=== PATIENT | female | born 1970 | race Caucasian/White ===

== ENCOUNTER → 2016-06-18 | Outpatient (CLI) | payer BC ==
[~2016-06-18] MED LIST: BIOT1TAB2 PO; CETI10TA57 PO; EFFEXOR 225 MG PO; LOSA1TAB15 PO; MINO100C6 PO; MULT-963 PO; NITR100C3 PO; PHEN200T27 PO; SEASONALE PO
--- NOTE | 2016-06-18 18:50 | Diagnostic Imaging Report ---
Exam: Ultrasound thyroid. Date: June 18, 2016. Comparison: None. Indication: 45-year-old female, thyromegaly. Findings: Two-dimensional grayscale and color Doppler images were obtained of the thyroid. Right lobe of the thyroid: There is a hypoechoic nodule in the right lobe of the thyroid with low level internal echogenicity which measures 8 x 8 x 5 mm in size without internal blood flow. The right lobe of the thyroid measures 4.0 x 1.7 x 1.6 cm. Left lobe of the thyroid: There is a tiny anechoic lesion in the left thyroid measuring 2 x 2 x 2 mm in size likely relating to a very small colloid cyst. The left lobe of the thyroid measures 4.7 x 1.5 x 1.6 cm. Isthmus: The thyroid isthmus is unremarkable. There is normal thyroid vascularity. Impression: 1. 8mm predominantly cystic nodule in the right lobe of the thyroid with low-level internal echogenicity. This is not a particularly suspicious appearing thyroid nodule. 2. Tiny 2 mm probable colloid cyst in the left lobe of the thyroid. 3. Normal thyroid vascularity. Dictated by: Dictated on workstation # [id number]
== END ==
LOC: RAD 17:53
PROVIDERS: ATTEND Nurse Practitioner Family
DX: E01.0 Iodine-deficiency related diffuse (endemic) goiter (principal)
CPT/HCPCS: 76536

== ENCOUNTER → 2016-06-27 | Outpatient (CLI) | payer BC ==
[~2016-06-27] VITALS: Ht 165.1 cm; Wt 82.6 kg
[~2016-06-27] MED LIST changes: +LIDOCAINE 1% INJ 20 ML (XYLOCAINE) VIAL INJ ONE
[2016-06-27 14:32] VITALS: BP 120/64
--- NOTE | 2016-06-27 15:21 | Diagnostic Imaging Report ---
EXAMINATION: US-guided fine needle biopsy-thyroid. INDICATION: Right thyroid nodule. Family history of thyroid cancer. CONSENT: Informed consent was obtained from the patient. The risks, benefits, potential complications and alternatives were reviewed and all questions answered to the patient's satisfaction. FINDINGS: 8mm indeterminate right thyroid nodule. PROCEDURE: After sterile preparation and draping, 1% lidocaine was utilized for local anesthesia. A 25-gauge hypodermic needle is introduced into the right thyroid nodule under live ultrasound guidance. After confirming adequate positioning with saved ultrasound images, multiple passes of fine needle aspiration is performed and repeated 4 times. The patient tolerated the procedure well with no immediate complications. IMPRESSION: Successful US-guided fine needle aspiration biopsy of right thyroid nodule. Dictated by: Dictated on workstation # [id number]
== END ==
LOC: RAD 13:51
PROVIDERS: ATTEND Surgery
DX: E04.1 Nontoxic single thyroid nodule (principal)
CPT/HCPCS: 76942; 88305

== ENCOUNTER → 2016-09-12 | Outpatient (CLI) | payer BC ==
[~2016-09-12] MED LIST changes: -LIDOCAINE 1% INJ 20 ML (XYLOCAINE) VIAL INJ ONE
--- NOTE | 2016-09-14 12:56 | Diagnostic Imaging Report ---
Bilateral screening mammogram 2D views with tomosynthesis The current study was also evaluated with a Computer Aided Detection (CAD) system. INDICATION: Screening. No current complaints stated on the questionnaire. COMPARISON: 08/18/15 FINDINGS: The breasts are composed of scattered fibroglandular densities. There are occasional benign-appearing calcifications. Allowing for technique and positional differences, no suspicious change is seen. IMPRESSION: No significant change. ACR BI-RADS Category 2: Benign findings. Result letter will be mailed to the patient. Note: At least 10% of breast cancer is not imaged by mammography. Dictated on workstation # [id number]
== END ==
LOC: RAD 11:55
PROVIDERS: ATTEND Obstetrics & Gynecology
DX: Z12.31 Encounter for screening mammogram for malignant neoplasm of breast (principal)
CPT/HCPCS: 77067

== ENCOUNTER → 2017-04-15 | Outpatient (CLI) | payer BC ==
--- NOTE | 2017-04-15 11:09 | Diagnostic Imaging Report ---
PROCEDURE: US Gallbladder. TECHNIQUE: Multiple real-time grayscale images were obtained over the right upper quadrant in various projections. INDICATION: Abdominal pain and dyspepsia. FINDINGS: The liver is enlarged at 19.4 cm. There is increased echogenicity throughout the liver consistent with hepatic steatosis. No discrete liver mass is identified. The gallbladder is without evidence of stones or sludge. No wall thickening is seen. No pericholecystic fluid is identified. There is no biliary ductal dilatation. Partially visualized pancreas is unremarkable. Right kidney is unremarkable. There is no ascites ascites. IMPRESSION: 1. Hepatomegaly and hepatic steatosis. 2. No evidence of cholelithiasis or acute cholecystitis. Dictated by: Dictated on workstation # [id number]
== END ==
LOC: RAD 08:08
PROVIDERS: ATTEND Nurse Practitioner Family
DX: K76.0 Fatty (change of) liver, not elsewhere classified (principal)
CPT/HCPCS: 76705

== ENCOUNTER → 2017-04-22 | Outpatient (CLI) | payer BC ==
[~2017-04-22] MED LIST changes: +CATHETER FLUSH 10 ML SYR IV PRN
--- NOTE | 2017-04-22 13:16 | Diagnostic Imaging Report ---
INDICATION: Right upper quadrant pain. COMPARISON: Gallbladder ultrasound from 04/15/2017. TECHNIQUE: Anterior scintigraphic imaging of the abdomen was performed after the intravenous administration of 5.49 mCi Tc-99m Choletec. FINDINGS: The upper abdomen was imaged for 60 minutes with the gamma camera. There is prompt homogeneous uptake of radiopharmaceutical by the liver. There is activity in the common duct and gallbladder by 20 minutes. Small bowel activity is seen by 20 minutes. After 60 minutes, the patient received 8 ounces of Ensure by mouth. After 60 minutes, the gallbladder ejection fraction was calculated to be 90% which is normal. IMPRESSION: 1. No evidence of acute or chronic cholecystitis. 2. No gallbladder dysfunction as there is a gallbladder ejection fraction of 90%. Dictated by: Dictated on workstation # [id number]
== END ==
LOC: CARD 09:42
PROVIDERS: ATTEND Nurse Practitioner Family
DX: R10.11 Right upper quadrant pain (principal)
CPT/HCPCS: 78227

== ENCOUNTER → 2017-08-06 | Outpatient (CLI) | payer BC ==
[~2017-08-06] MED LIST changes: -CATHETER FLUSH 10 ML SYR IV PRN
== END ==
LOC: PREOP 05:36
PROVIDERS: ATTEND Surgery
DX: Z01.818 Encounter for other preprocedural examination (principal); R10.11 Right upper quadrant pain; R19.7 Diarrhea, unspecified

== ENCOUNTER → 2017-08-06 | Outpatient (CLI) | payer BC | LOC: CARD 13:40 | PROVIDERS: ATTEND Physician Assistant | DX: E11.9 Type 2 diabetes mellitus without complications (principal); I10 Essential (primary) hypertension; R00.2 Palpitations; R00.0 Tachycardia, unspecified | CPT/HCPCS: 93306 ==

== ENCOUNTER → 2017-09-24 | Outpatient (CLI) | payer BC ==
--- NOTE | 2017-09-24 12:10 | Diagnostic Imaging Report ---
INDICATION: Routine screening. Comparison is made prior study 09/12/2016 and 08/18/2015. 2-D and 3-D bilateral screening mammography was performed with Computer Aided Detection (CAD) system. FINDINGS: Scattered fibroglandular densities are identified bilaterally. There is a focal density in the superior left breast best seen on MLO at mid depth. No corresponding density on the CC view is seen. This most likely represents summation but additional views are recommended. Right breast is unremarkable. No malignant appearing microcalcifications are seen. The axillae are unremarkable. IMPRESSION: Left breast density. Additional views including spot compression and ML views are recommended for further evaluation. ACR BI-RADS Category 0: Incomplete. (Needs additional imaging evaluation). Result letter will be mailed to the patient. Note: At least 10% of breast cancer is not imaged by mammography. Dictated by: Dictated on workstation # [id number]
== END ==
LOC: RAD 09:17
PROVIDERS: ATTEND Obstetrics & Gynecology
DX: Z12.31 Encounter for screening mammogram for malignant neoplasm of breast (principal)
CPT/HCPCS: 77067

== ENCOUNTER → 2017-10-02 | Outpatient (CLI) | payer BC ==
--- NOTE | 2017-10-02 08:31 | Diagnostic Imaging Report ---
Indication: Left breast density. Patient presents for additional views. Correlation is made with screening study from 09/24/2017. 2-D and 3-D unilateral left diagnostic mammography was performed including conventional and mediolateral view and spot compression mediolateral views. Area of density noted in the superior left breast appears resolved with additional views and most likely represented superimposed fibroglandular tissue. No underlying mass or suspicious calcifications are seen. Impression: BI-RADS category 1 Additional views failed to demonstrate a discrete mass. Patient may return to routine annual screening mammography. ACR BI-RADS Category 1: Negative. Result letter will be mailed to the patient. Note: At least 10% of breast cancer is not imaged by mammography. Dictated by: Dictated on workstation # [id number]
== END ==
LOC: RAD 08:05
PROVIDERS: ATTEND Obstetrics & Gynecology
DX: R92.2 Inconclusive mammogram (principal)

== ENCOUNTER 2017-10-25 05:30 | Outpatient (CLI) | payer BC ==
[~2017-10-25] VITALS: Ht 165.1 cm; Wt 77.1 kg
[2017-10-25] MEDS ORDERED: METO-387 PO (14:10)
[2017-10-25] MEDS ORDERED: CHOL500049 PO (14:10)
[2017-10-25] MEDS ORDERED: THYR48.7 PO (14:10)
[2017-10-25] MEDS ORDERED: LOSA1TAB23 PO (14:10)
[2017-10-25] MEDS ORDERED: METF-397 PO (14:10)
[2017-10-25] MEDS ORDERED: CETI10TA17 PO (14:10)
[2017-10-25] MEDS ORDERED: MULT1CAP27 PO (14:10)
[2017-10-25] MEDS ORDERED: MINO100C2 PO (14:10)
[2017-10-25] MEDS ORDERED: VENL150T PO (14:10)
[2017-10-25] MEDS ORDERED: L-NO1TBD PO (14:10)
[2017-10-25] MEDS ORDERED: ZOLP5TAB PO (14:10)
[2017-10-31] MEDS ORDERED: DOCU-143 PO (09:32)
[2017-10-31] MEDS ORDERED: ACHD5005 PO (09:32)
== END 2017-10-25 14:14 | disposition home or self-care (01) ==
LOC: PREOP 05:30
PROVIDERS: ATTEND Surgery
DX: Z01.818 Encounter for other preprocedural examination (principal)

== ENCOUNTER 2017-10-31 06:17 | Day surgery (SDC) | payer BC ==
[~2017-10-31] VITALS: Ht 165.1 cm; Wt 77.1 kg
[~2017-10-31 06:17] MED LIST changes: +CETI10TA17 PO; +CHOL500049 PO; +L-NO1TBD PO; +LOSA1TAB23 PO; +METF-397 PO; +METO-387 PO; +MINO100C2 PO; +MULT1CAP27 PO; +THYR48.7 PO; +VENL150T PO; +ZOLP5TAB PO
[2017-10-31] MEDS ORDERED: ceFAZolin 1,000 MG/10 ML (ANCEF) VIAL ONE (06:54)
[2017-10-31] MEDS ORDERED: NS (IVPB) 50 ML ONE (06:54)
[2017-10-31 07:00] VITALS: BP 135/82
[2017-10-31] MEDS ORDERED: SCOPOLAMINE 1.5 MG (TRANSDERM-SCOP) PATCH ONE (07:00)
[2017-10-31] MEDS ORDERED: FAMOTIDINE 20MG/2ML IV (PEPCID) ONE (07:00)
[2017-10-31] MEDS ORDERED: ONDANSETRON 4 MG/2 ML (SDV) Z0FRAN ONE (07:00)
[2017-10-31] MEDS ORDERED: BUPIVACAINE 0.5% 30 ML (SENSORCAINE) VIAL ONE (07:02)
[2017-10-31] MEDS ORDERED: LIDOCAINE 1% INJ 20 ML 20 ML VIAL ONE (07:02)
[2017-10-31] MEDS ORDERED: ROCURONIUM 10 MG/ML 5 ML SYRINGE IV ONE (07:03)
[2017-10-31] MEDS ORDERED: MIDAZOLAM 2 MG/2 ML (VERSED) VIAL ONE (07:03)
[2017-10-31] MEDS ORDERED: proPOfol 200 MG/20 ML (DIPRIVAN) VIAL IV ONE (07:03)
[2017-10-31] MEDS ORDERED: fentaNYL INJECTION 100 MCG/2 ML AMP ONE (07:03)
[2017-10-31] MEDS ORDERED: LIDOCAINE PF 2% 5 ML (XYLOCAINE) VIAL ONE (07:03)
[2017-10-31] MEDS ORDERED: LACTATED RINGERS 1,000 ML IV ONE (07:03)
[2017-10-31] MEDS ORDERED: SEVOFLURANE (ULTANE) 15 ML INHAL SOLN ONE ×7 (07:04→09:07)
[2017-10-31 07:06] LABS: BASOPHILS % (AUTO) 0 % (0-10); EOSINOPHILS # (AUTO) 0.3 10^3/uL (0.0-0.3); EOSINOPHILS % (AUTO) 3 % (0-10); HEMATOCRIT 35 % (35-52); HEMOGLOBIN 11.8 G/DL (11.5-16.0); LYMPHOCYTES # (AUTO) 2.7 X 10^3 (1.0-4.0); LYMPHOCYTES % (AUTO) 26 % (12-44); MEAN CORPUSCULAR HEMOGLOBIN 28 PG (25-34); MEAN CORPUSCULAR HGB CONC 34 G/DL (32-36); MEAN CORPUSCULAR VOLUME 84 FL (80-99); MEAN PLATELET VOLUME 10.9 FL (7.4-10.4); MONOCYTES # (AUTO) 0.6 X 10^3 (0.0-1.0); MONOCYTES % (AUTO) 6 % (0-12); NEUTROPHILS # (AUTO) 6.6 X 10^3 (1.8-7.8); NEUTROPHILS % (AUTO) 65 % (42-75); PLATELET COUNT 385 10^3/uL (130-400); RED BLOOD COUNT 4.18 10^6/uL (4.35-5.85); RED CELL DISTRIBUTION WIDTH 13.5 % (10.0-14.5); WHITE BLOOD COUNT 10.2 10^3/uL (4.3-11.0)
[2017-10-31] MEDS: LACTATED RINGERS 1,000 ML IV PRN ×2 (07:14→08:30)
[2017-10-31] MEDS ORDERED: FAMOTIDINE 20MG/2ML IV (PEPCID) IV ONE (07:15)
[2017-10-31] MEDS ORDERED: SCOPOLAMINE 1.5 MG (TRANSDERM-SCOP) PATCH TOP ONE (07:15)
[2017-10-31] MEDS ORDERED: ceFAZolin INJECTION 1,000 MG in NS (IVPB) 50 ML IV ONE (07:15)
[2017-10-31] MEDS ORDERED: ONDANSETRON 4 MG/2 ML (SDV) Z0FRAN IV ONE (07:15)
[2017-10-31] MEDS ORDERED: CATHETER FLUSH 10 ML SYR IV PRN (07:30)
--- NOTE | 2017-10-31 07:47 | Progress Note-Pre Operative ---
Pre-Operative Progress Note H&P Reviewed The H&P was reviewed, patient examined and no changes noted. Date Seen by Provider: Oct 31, 2017 Time Seen by Provider: 07:35 Date H&P Reviewed: Oct 31, 2017 Time H&P Reviewed: 07:35 Pre-Operative Diagnosis: ruq abdominal pain, biliary dyskinesia DIAN ACEVEDO DO Oct 31, 2017 07:47
[2017-10-31] MEDS ORDERED: GLYCOPYRROLATE 0.2 MG/ML (ROBINUL) 2 ML VIAL ONE ×2 (08:36→09:46)
--- NOTE | 2017-10-31 09:21 | Progress Note-Post Operative ---
Post-Operative Progess Note Surgeon (s)/Last Sorter (s) Surgeon DIAN ACEVEDO DO Last Sorter: Dr. Dietrich Pre-Operative Diagnosis ruq abdominal pain, biliary dyskinesia Post-Operative Diagnosis same Procedure & Operative Findings Date of Procedure 10/31/17 Procedure Performed/Findings lap armando c ioc Anesthesia Type gen Estimated Blood Loss Estimated blood loss (mL): min Specimens/Packing Specimens Removed gallbladder DIAN ACEVEDO DO Oct 31, 2017 09:21
--- NOTE | 2017-10-31 09:23 | Discharge Inst-Simple/Standard ---
Discharge Inst-Standard Discharge Medications New, Converted or Re-Newed RX: RX on Chart Patient Instructions/Follow Up Plan of Care/Instructions/FU: 2 weeks Dariela Activity as Tolerated: No Discharge Diet: Regular Diet Other Inst to Patient Follow up Appt: Make appointment for 2 weeks. Instructions: No lifting greater than 10 pounds. No strenuous activity. May shower in 24 hours, no tub bath or soaking. Use incentive spirometer at home as directed. No Smoking Skin/Wound Care: You have special glue over incisions it will fall off on its own. Symptoms to Report: Appetite Changes, Extremity Discoloration, Numbness/Tingling, Swelling Increased , Bleeding Excessive, Eyesight Changes, Pain Increased, Urine Color Change, Constipation(Persistent), Fever over 101 degree F, Pain/Pressure in chest, Urinating Difficulty, Cough Up/Vomit Blood, Heart Beat Irreg/Pounding, Pain/ Pressure in jaw, Vaginal Bleeding Increase, Cramps in feet or legs, Lightheadedness, Pain/Pressure in shoulder, Diarrhea(Persistent), Memory Changes Suddenly, Questions/Concerns, Weight gain consecutive days, Dizziness/ Fainting, Nausea/Vomiting, Shortness of Breath, Weight gain over 2 pounds. If eyes or skin turn yellow notify physician. If questions or concerns contact your physician Or seek help at emergency department. DIAN ACEVEDO DO Oct 31, 2017 09:23
[2017-10-31] MEDS ORDERED: HYDROcodone/APAP 5 MG/325 MG (LORTAB) TAB PO PRN (09:30)
[2017-10-31] MEDS ORDERED: DOCU-143 PO (09:32)
[2017-10-31] MEDS ORDERED: ACHD5005 PO (09:32)
[2017-10-31] MEDS ORDERED: NEOSTIGMINE 1 MG/ML 5 ML SYRINGE ONE (09:41)
--- NOTE | 2017-10-31 09:41 | Diagnostic Imaging Report ---
INDICATION: Abdominal pain Intraoperative fluoroscopy used during laparoscopic cholecystectomy for operative cholangiography. Contrast injection performed in surgery demonstrates the common duct to be normal in caliber with no filling defects. Contrast passes to the duodenum without obstruction. 12 seconds of fluoroscopy time was used. IMPRESSION: Unremarkable operative cholangiogram. Dictated by: Dictated on workstation # [id number]
[2017-10-31] MEDS ORDERED: ONDANSETRON 4 MG/2 ML (SDV) Z0FRAN IVP PRN (09:45)
[2017-10-31] MEDS ORDERED: morphine INJ 10 MG/ML 1ML (SYR OR VIAL) IVP ONE (09:45)
[2017-10-31] MEDS ORDERED: MEPERIDINE (DEMEROL) INJ 50 MG/ML IVP ONE (09:45)
[2017-10-31 10:50] VITALS: BP 134/74
[2017-10-31] MEDS ORDERED: HYDROcodone/APAP 5 MG/325 MG (LORTAB) TAB PO ONE (11:00)
[2017-10-31 11:20] VITALS: BP 127/84
[2017-10-31 11:50] VITALS: BP_SYST 127; BP_DIAS 75; BP_DIAS 84
--- NOTE | 2017-10-31 12:32 | Anesthesia-General Post-Op ---
General Patient Condition Mental Status/LOC: Same as Preop Cardiovascular: Satisfactory Nausea/Vomiting: Absent Respiratory: Satisfactory Pain: Controlled Complications: Absent Post Op Complications Complications None Follow Up Care/Instructions Patient Instructions None needed. Anesthesia/Patient Condition Patient Condition Patient is doing well, no complaints, stable vital signs, no apparent adverse anesthesia problems. No complications reported per nursing. D/C home per [facility] Criteria: Yes STUART LAZCANO CRNA Oct 31, 2017 12:32
--- NOTE | 2017-11-01 13:16 | OPERATIVE REPORT ---
DATE OF SERVICE: 10/31/2017 PREOPERATIVE DIAGNOSES: Right upper quadrant abdominal pain, biliary dyskinesia. POSTOPERATIVE DIAGNOSES: Right upper quadrant abdominal pain, biliary dyskinesia. PROCEDURE: Laparoscopic cholecystectomy with intraoperative cholangiogram. SURGEON: Dian Lyle D.O. QUALITY ASSURANCE AUDITOR: Dr. Dietrich, assisted in retraction, dissection, and closure. ANESTHESIA: General. ESTIMATED BLOOD LOSS: Minimal. COMPLICATIONS: None. INDICATIONS: The patient is a 47-year-old female who has been having right upper quadrant abdominal pain for some time. She had a HIDA scan with an ejection fraction at 90% and symptoms consistent with gallbladder disease. She was explained of risks and benefits of having procedure performed. She understands and wishes to proceed. Consent was signed in the chart. DESCRIPTION OF PROCEDURE: The patient was taken to the operating suite. She was prepped and draped in sterile fashion. Surgical pause was performed. Tio technique was used to enter the abdomen just above the umbilicus. Once the abdomen was opened, a balloon trocar was inserted and pneumoperitoneum was achieved. Under direct visualization of the laparoscope, a 5-mm trocar was then placed in the subxiphoid region and two 5-mm trocars were placed in the right upper quadrant. The gallbladder was grasped and elevated. There were some adhesions up to the gallbladder, which were then taken down with both blunt and cautery dissection. The cystic duct and cystic artery were then dissected out. Clips were placed on the proximal and distal portion of the cystic artery and a clip was placed on the distal portion of the cystic duct. The duct was then partially transected. Arrow catheter was inserted to the duct and cholangiogram was performed. There were no filling defects. Contrast made its way into the duodenum without difficulty. The clip was placed on the proximal portion of the cystic duct and the duct and artery were then completely transected. The hook cautery was used to dissect the gallbladder from the gallbladder fossa achieving hemostasis. Once removed, the gallbladder was placed in an Endobag and removed through the 12-mm trocar site. The abdomen was then irrigated with copious amounts of irrigation and suction. The abdomen was then desufflated. Trocars were removed. The 12-mm trocar site was then closed using 0-PDS. The skin was then closed using 4-0 Monocryl in a subcuticular fashion. The abdomen was then washed and dried and Skin Affix was placed over the incisions. The patient tolerated the procedure well without any complications. She was taken to recovery room in stable condition. Job ID: [id number] DocumentID: [id number] Dictated Date: 11/01/2017 09:05:09 Industrial Relations Counselor Date: 11/01/2017 09:34:43 Dictated By: DIAN LYLE DO
== END 2017-10-31 12:09 | disposition home or self-care (01) ==
LOC: SDC 06:17
PROVIDERS: ATTEND Surgery
DX: K81.1 Chronic cholecystitis (principal); K82.8 Other specified diseases of gallbladder; I10 Essential (primary) hypertension; K21.9 Gastro-esophageal reflux disease without esophagitis; R73.03 Prediabetes; Z79.84 Long term (current) use of oral hypoglycemic drugs
CPT/HCPCS: 36415; 84703; 85025; 87081; 88304; 94664

== ENCOUNTER 2018-04-10 07:52 | Outpatient (CLI) | payer BC ==
[~2018-04-10] VITALS: Ht 165.1 cm; Wt 77.1 kg
[~2018-04-10 07:52] MED LIST changes: +ACHD5005 PO; +DOCU-143 PO
[2018-04-11] MEDS ORDERED: PANT40TA2 PO (13:22)
== END 2018-04-10 13:40 | disposition home or self-care (01) ==
LOC: PREOP 07:52
PROVIDERS: ATTEND Surgery
DX: Z01.818 Encounter for other preprocedural examination (principal)

== ENCOUNTER 2018-04-11 09:40 | Day surgery (SDC) | payer BC ==
[~2018-04-11] VITALS: Ht 165.1 cm; Wt 77.1 kg
[2018-04-11] MEDS ORDERED: LACTATED RINGERS 1,000 ML IV STA (10:28)
[2018-04-11] MEDS ORDERED: HURRICAINE EXT TUBE (BENZOCAINE) XX PRN (10:30)
[2018-04-11] MEDS ORDERED: LACTATED RINGERS 1,000 ML IV ONE ×2 (10:33→12:49)
--- OUTSIDE RECORDS SUMMARY | 2018-04-11 10:37 | XMS REPORT ---
Author Author TAMY DAVEIS Organization [facility] Address [address] [place] [address] Care Team Providers Care Filter Tender Jelly Name Role Phone TAMY DAVIES Unavailable PROBLEMS Type Condition ICD9-CM Code QFP32-PB Code Onset Dates Condition Status SNOMED Code Problem Environmental allergies Z91.09 Active 758010326 ALLERGIES No Information ENCOUNTERS Encounter Location Date Diagnosis [facility] [address] [address] Nov, Encounter for immunization Z23 [facility] [address] [id number] Apr, Subacute maxillary sinusitis J01.00 [facility] [address] [id number] Mar, Subacute maxillary sinusitis J01.00 and Otalgia of both ears H92.03 [facility] [id number] [place] [id number] Dec, Acute pansinusitis, recurrence not specified J01.40 and Dysfunction of both eustachian tubes H69.83 [facility] [id number] [place] [id number] Apr, Sinus congestion R09.81 and Environmental allergies Z91.09 [facility] [address] [address] May, [facility] [address] [address] May, [facility] [address] [address] Nov, [facility] [address] [facility] [id number] [address] Nov, [facility] [address] [facility] [id number], [place] [address] Oct, [facility] [address] [facility] [id number], [place] [address] Dec, [facility] [address] [facility] [id number] [address] Dec, IMMUNIZATIONS Vaccine Route Administration Date Status FLULAVAL QUAD 0.5ML (6 MO & UP) 2018 IM Intramuscular Dec 19, 2017 Administered SOCIAL HISTORY Never Assessed REASON FOR VISIT flu shot PLAN OF CARE VITAL SIGNS MEDICATIONS Unknown Medications RESULTS No Results PROCEDURES Procedure Date Ordered Result Body Site FLULAVAL QUAD 0.5ML (6 MO AND UP) 2018 Dec 19, 2017 SINGLE IMMUNIZATION ADMIN Dec 19, 2017 INSTRUCTIONS MEDICATIONS ADMINISTERED No Known Medications MEDICAL (GENERAL) HISTORY Type Description Date Medical History hypertension Surgical History left ACL 2015
--- OUTSIDE RECORDS SUMMARY | 2018-04-11 10:38 | XMS REPORT ---
Author Author RAIZA Red Organization [facility] Address [address] [place] [address] Care Team Providers Care Dividend Deposit Voucher Clerk Name Role Phone RAIZA Red Unavailable PROBLEMS Type Condition ICD9-CM Code [id number] Code Onset Dates Condition Status SNOMED Code Problem Environmental allergies Z91.09 Active [id number] ALLERGIES No Known Allergies ENCOUNTERS Encounter Location Date Diagnosis [facility] [id number] [place] [id number] Apr, Subacute maxillary sinusitis J01.00 [facility] [place] [id number] [place] [id number] Mar, Subacute maxillary sinusitis J01.00 and Otalgia of both ears H92.03 [facility] [place] [id number] [place] [id number] Dec, Acute pansinusitis, recurrence not specified J01.40 and Dysfunction of both eustachian tubes H69.83 [facility] [place] [id number] [place] [id number] Apr, Sinus congestion R09.81 and Environmental allergies Z91.09 [facility] [id number] [place] [id number] May, [facility] [id number] [place] [address] May, [facility] [id number] [place] [id number] Nov, [facility] [id number] [place] [id number] Nov, [facility] [id number] [place] [address] Oct, [facility] [address] [facility] [id number] [place] [address] Dec, [facility] [address] [facility] [id number] [place] [address] Dec, IMMUNIZATIONS No Known Immunizations SOCIAL HISTORY Never Assessed [facility]ASON FOR VISIT [facility] Activity Details Follow Up prn Reason: VITAL SIGNS Height 64 in 2017-04-18 Weight 173.4 lbs 2017-04-18 Temperature 97.5 degrees Fahrenheit 2017-04-18 Heart Rate 107 bpm 2017-04-18 Respiratory Rate 18 2017-04-18 BMI 29.76 kg/m2 2017-04-18 Blood pressure systolic 134 mmHg 2017-04-18 Blood pressure diastolic 75 mmHg 2017-04-18 MEDICATIONS Medication Instructions Dosage Frequency Start Date End Date Duration Status Levonorgestrel-Ethinyl Estrad by Oral route Dec, Active Effexor XR by Oral route Dec, Active Metformin HCl Active Zyrtec Allergy Active Cefdinir 300 MG Orally every 12 hrs 1 capsule 12h Mar, Apr, 10 day(s) Active Augmentin 875-125 mg 1 tablet by Oral route 2 times per day for 10 day(s) Oct, Not-Taking Diflucan 150 mg take 1 tablet by Oral route once 1 time per day Take on day 5 and day 10 Oct, Not-Taking PredniSONE 20 mg Orally Once a day with food 3 tablets x 3 days, 2 tablets x 3 days, then 1 tab x 2 days Apr, 8 days Active Promethazine-Codeine 6.25-10 mg/5 mL 10 mL by Oral route every 6 hours for 7 day(s)PRNcough Dec, Not-Taking Hyzaar by Oral route Dec, Not-Taking RESULTS No Results PROCEDURES No Known procedures INSTRUCTIONS MEDICATIONS ADMINISTERED No Known Medications MEDICAL (GENERAL) HISTORY Type Description Date Medical History hypertension Surgical History left ACL 2015
--- OUTSIDE RECORDS SUMMARY | 2018-04-11 10:38 | XMS REPORT | Continuity of Care Document ---
Author Author [facility] Ctr of [facility] C[facility] of [facility] Address Unknown Phone Unavailable Allergies Active Description Code Type Severity Reaction Onset Reported/Identified Relationship to Patient Clinical Status Yes No Known Drug Allergies [id number] Drug Allergy Unknown N/A 08/08/2012 Medications There is no data. Problems Date Dx Coded Attending Type Code Diagnosis Diagnosed By 01/15/2012 461.9 SINUSITIS ACUTE 01/15/2012 786.2 COUGH 01/15/2012 DALE HERNANDEZ RAIZA A 461.9 SINUSITIS ACUTE 01/15/2012 RAJJULIAE [employer], RAIZA A 786.2 COUGH 01/15/2012 RAJJULIAE [employer], RAIZA A 461.9 SINUSITIS ACUTE 01/15/2012 RAJJULIAE [employer], RAIZA A 786.2 COUGH 08/13/2012 LADI MCCORMICK, JAKE A Ot 401.9 HYPERTENSION NOS 08/13/2012 LADI MCCORMICK, JAKE A Ot 788.30 UNSPECIFIED URINARY INCONTINENCE 12/15/2013 GABRIEL HUNTER APRNYL A V04.81 FLU SHOT 01/14/2014 CARLO MCCORMICK, MARIZA Rader Ot V76.12 11/17/2014 LADI MCCORMICK, JAKE A Ot 598.9 11/17/2014 LADI MCCORMICK, JAKE A Ot 625.6 11/17/2014 LADI MCCORMICK, JAKE A Ot V72.63 11/17/2014 LADI MCCORMICK, JAKE A Ot V72.81 11/17/2014 CARLO MCCORMICK, MARIZA Rader Ot V76.12 11/24/2014 LADI MCCORMICK, JAKE A Ot 598.9 11/24/2014 LADI MCCORMICK, JAKE A Ot 625.6 11/24/2014 LADI MCCORMICK, JAKE A Ot V72.63 11/24/2014 LADI MCCORMICK, JAKE A Ot V72.81 11/24/2014 CARLOMARIZA ARRIETA MD Ot V76.12 12/30/2014 JAKE BLEDSOE MD Ot 598.9 12/30/2014 JAKE BLEDSOE MD Ot 625.6 12/30/2014 JAKE BLEDSOE MD Ot V72.63 12/30/2014 JAKE BLEDSOE MD Ot V72.81 12/30/2014 MARIZA MATOS MD Ot V76.12 08/18/2015 JAKE BLEDSOE MD Ot 598.9 URETHRAL STRICTURE NOS 08/18/2015 JAKE BLEDSOE MD Ot 625.6 FEM STRESS INCONTINENCE 08/18/2015 JAKE BLEDSOE MD, Ot V72.63 PRE-PROCEDURAL LABORATORY EXAMINATION 08/18/2015 JAKE BLEDSOE MD, Ot V72.81 GKMG-[id number]-[id number] CARDIOVASCULAR 08/18/2015 MARIZA MATOS MD, Ot V76.12 OTH SCREEN MAMMO-MALIGN NEOPLASM OF LAVELLE 08/19/2015 MARIZA MATOS MD Ot Z12.31 ENCNTR SCREEN MAMMOGRAM FOR MALIGNANT NE 09/01/2015 MARIZA MATOS MD, Ot Z12.31 ENCNTR SCREEN MAMMOGRAM FOR MALIGNANT NE 07/04/2016 FLACA OCAMPO Ot 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 RELATED DIFFUSE (ENDEM 07/12/2016 JENNIFER MCCORMICK, KENDALL Crawford Ot E04.1 NONTOXIC SINGLE THYROID NODULE 08/23/2016 JENNIFER MCCORMICK, KENDALL Crawford Ot E04.1 NONTOXIC SINGLE THYROID NODULE 09/28/2016 MARIZA MATOS MD Ot Z12.31 ENCNTR SCREEN MAMMOGRAM FOR MALIGNANT NE 10/09/2016 JAKE BLEDSOE MD Ot 598.9 URETHRAL STRICTURE NOS 10/09/2016 JAKE BLEDSOE MD Ot 625.6 FEM STRESS INCONTINENCE 10/09/2016 JAKE BLEDSOE MD Ot V72.63 PRE-PROCEDURAL LABORATORY EXAMINATION 10/09/2016 JAKE BLEDSOE MD, Ot V72.81 [id number] CARDIOVASCULAR 10/09/2016 MARIZA MATOS MD, Ot V76.12 OTH SCREEN MAMMO-MALIGN NEOPLASM OF LAVELLE 10/09/2016 MARIZA MATOS MD, Ot Z12.31 ENCNTR SCREEN MAMMOGRAM FOR MALIGNANT NE 10/09/2016 FLACA OCAMPO CARPENTER APPRENTICE Ot 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 RELATED DIFFUSE (ENDEM 10/09/2016 JENNIFER MCCORMICK, KENDALL Crawford Ot E04.1 NONTOXIC SINGLE THYROID NODULE 10/09/2016 MARIZA MATOS MD Ot Z12.31 ENCNTR SCREEN MAMMOGRAM FOR MALIGNANT NE 2016 JAKE BLEDSOE MD Ot 598.9 URETHRAL STRICTURE NOS 2016 JAKE BLEDSOE MD Ot 625.6 FEM STRESS INCONTINENCE 2016 JAKE BLEDSOE MD Ot V72.63 PRE-PROCEDURAL LABORATORY EXAMINATION 2016 JAKE BLEDSOE MD Ot V72.81 DIFL-UMI-CTJKRSZXP CARDIOVASCULAR 2016 MARIZA MATOS MD, Ot V76.12 OTH SCREEN MAMMO-MALIGN NEOPLASM OF LAVELLE 2016 MARIZA MATOS MD, Ot Z12.31 ENCNTR SCREEN MAMMOGRAM FOR MALIGNANT NE 2016 FLACA OCAMPO CARPENTER APPRENTICE Ot 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 RELATED DIFFUSE (ENDEM 2016 JENNIFER MCCORMICK, KENDALL M Ot E04.1 NONTOXIC SINGLE THYROID NODULE 2016 MARIZA MATOS MD, Ot Z12.31 ENCNTR SCREEN MAMMOGRAM FOR MALIGNANT NE 04/16/2017 FLACA OCAMPO CARPENTER APPRENTICE Ot K76.0 FATTY (CHANGE OF) LIVER, NOT ELSEWHERE C 04/29/2017 FLACA OCAMPO CARPENTER APPRENTICE Ot K76.0 FATTY (CHANGE OF) LIVER, NOT ELSEWHERE C 05/01/2017 JAKE BLEDSOE MD Ot 598.9 URETHRAL STRICTURE NOS 05/01/2017 JAKE BLEDSOE MD Ot 625.6 FEM STRESS INCONTINENCE 05/01/2017 JAKE BLEDSOE MD Ot V72.63 PRE-PROCEDURAL LABORATORY EXAMINATION 05/01/2017 JAKE BLEDSOE MD Ot V72.81 FDES-[id number]-HMFFCPNYX CARDIOVASCULAR 05/01/2017 MARIZA MATOS MD Ot V76.12 OTH SCREEN MAMMO-MALIGN NEOPLASM OF LAVELLE 05/01/2017 MARIZA MATOS MD Ot Z12.31 ENCNTR SCREEN MAMMOGRAM FOR MALIGNANT NE 05/01/2017 FLACA OCAMPO CARPENTER APPRENTICE Ot 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 RELATED DIFFUSE (ENDEM 05/01/2017 JENNIFER MCCORMICK, KENDALL Crawford Ot E04.1 NONTOXIC SINGLE THYROID NODULE 05/01/2017 MARIZA MATOS MD, Ot Z12.31 ENCNTR SCREEN MAMMOGRAM FOR MALIGNANT NE 05/01/2017 FLACA OCAMPO L CARPENTER APPRENTICE Ot K76.0 FATTY (CHANGE OF) LIVER, NOT ELSEWHERE C 05/01/2017 ELIAS OCAMPOIA L CARPENTER APPRENTICE Ot R10.11 RIGHT UPPER QUADRANT PAIN 05/03/2017 FLACA OCAMPO L CARPENTER APPRENTICE Ot K76.0 FATTY (CHANGE OF) LIVER, NOT ELSEWHERE C 05/06/2017 FLACA OCAMOP L CARPENTER APPRENTICE Ot K76.0 FATTY (CHANGE OF) LIVER, NOT ELSEWHERE C 05/10/2017 FLACA OCAMPO L CARPENTER APPRENTICE Ot R10.11 RIGHT UPPER QUADRANT PAIN 05/23/2017 LADI MCCORMICK, JAKE Mcclure Ot 598.9 URETHRAL STRICTURE NOS 05/23/2017 LADI MCCORMICK, JAKE Mcclure Ot 625.6 FEM STRESS INCONTINENCE 05/23/2017 LADI MCCORMICK, JAKE Mcclure Ot V72.63 PRE-PROCEDURAL LABORATORY EXAMINATION 05/23/2017 JAKE BLEDSOE MD Ot V72.81 LSVF-KCU-SSMNISENV CARDIOVASCULAR 05/23/2017 MARIZA MATOS MD Ot V76.12 OT SCREEN MAMMO-MALIGN NEOPLASM OF LAVELLE 05/23/2017 MARIZA MATOS MD Ot Z12.31 ENCNTR SCREEN MAMMOGRAM FOR MALIGNANT NE 05/23/2017 FLACA OCAMPO CARPENTER APPRENTICE Ot 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 RELATED DIFFUSE (ENDEM 05/23/2017 JENNIFER MCCORMICK, KENDALL Crawford Ot E04.1 NONTOXIC SINGLE THYROID NODULE 05/23/2017 MARIZA MATOS MD Ot Z12.31 ENCNTR SCREEN MAMMOGRAM FOR MALIGNANT NE 05/23/2017 FLACA OCAMPO CARPENTER APPRENTICE Ot K76.0 FATTY (CHANGE OF) LIVER, NOT ELSEWHERE C 05/23/2017 FLACA OCAMPO CARPENTER APPRENTICE Ot R10.11 RIGHT UPPER QUADRANT PAIN 08/07/2017 ACEVEDODIAN CASTAÑEDA DO Ot R10.11 RIGHT UPPER QUADRANT PAIN 08/07/2017 DIAN ACEVEDO DO Ot R19.7 DIARRHEA, UNSPECIFIED 08/07/2017 DIAN ACEVEDO DO Ot Z01.818 ENCOUNTER FOR OTHER PREPROCEDURAL EXAMIN 08/07/2017 JERO IBARRA Ot E11.9 TYPE 2 DIABETES MELLITUS WITHOUT COMPLIC 08/07/2017 JERO IBARRA Ot I10 ESSENTIAL (PRIMARY) HYPERTENSION 08/07/2017 JERO IBARRA Ot R00.0 TACHYCARDIA, UNSPECIFIED 08/07/2017 JERO IBARRA Ot R00.2 PALPITATIONS 10/25/2017 DIAN ACEVEDO DO Ot Z01.818 ENCOUNTER FOR OTHER PREPROCEDURAL EXAMIN 10/31/2017 DIAN ACEVEDO DO Ot I10 ESSENTIAL (PRIMARY) HYPERTENSION 10/31/2017 DIAN ACEVEDO DO Ot K21.9 GASTRO-ESOPHAGEAL REFLUX DISEASE WITHOUT 10/31/2017 DIAN ACEVEDO DO Ot K81.1 CHRONIC CHOLECYSTITIS 10/31/2017 DIAN ACEVEDO DO Ot K82.8 OTHER SPECIFIED DISEASES OF GALLBLADDER 10/31/2017 DIAN ACEVEDO DO Ot R73.03 PREDIABETES 10/31/2017 DIAN ACEVEDO DO Ot Z79.84 ALF (CURRENT) USE OF ORAL HYPOGLYC 11/01/2017 MARIZA MATOS MD Ot Z12.31 ENCNTR SCREEN MAMMOGRAM FOR MALIGNANT NE 11/05/2017 JAKE BLEDSOE MD Ot 598.9 URETHRAL STRICTURE NOS 11/05/2017 JAKE BLEDSOE MD Ot 625.6 FEM STRESS INCONTINENCE 11/05/2017 JAKE BLEDSOE MD Ot V72.63 PRE-PROCEDURAL LABORATORY EXAMINATION 11/05/2017 JAKE BLEDSOE MD Ot V72.81 [id number]-[id number] CARDIOVASCULAR 11/05/2017 MARIZA MATOS MD, Ot V76.12 OTH SCREEN MAMMO-MALIGN NEOPLASM OF LAVELLE 11/05/2017 CARLO MCCORMICK, MARIZA Rader Ot Z12.31 ENCNTR SCREEN MAMMOGRAM FOR MALIGNANT NE 11/05/2017 FLACA OCAMPO Ot 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 RELATED DIFFUSE (ENDEM 11/05/2017 JENNIFER MCCORMICK, KENDALL Crawford Ot E04.1 NONTOXIC SINGLE THYROID NODULE 11/05/2017 CARLO MCCORMICK, MARIZA Rader Ot Z12.31 ENCNTR SCREEN MAMMOGRAM FOR MALIGNANT NE 11/05/2017 FLACA OCAMPO Ot K76.0 FATTY (CHANGE OF) LIVER, NOT ELSEWHERE C 11/05/2017 FLACA OCAMPO Ot R10.11 RIGHT UPPER QUADRANT PAIN 11/05/2017 JERO IBARRA Ot E11.9 TYPE 2 DIABETES MELLITUS WITHOUT COMPLIC 11/05/2017 JERO IBARRA Ot I10 ESSENTIAL (PRIMARY) HYPERTENSION 11/05/2017 JERO IBARRA Ot R00.0 TACHYCARDIA, UNSPECIFIED 11/05/2017 JERO IBARRA Ot R00.2 PALPITATIONS 11/05/2017 DIAN ACEVEDO DO Ot R10.11 RIGHT UPPER QUADRANT PAIN 11/05/2017 DIAN ACEVEDO DO Ot R19.7 DIARRHEA, UNSPECIFIED 11/05/2017 DIAN ACEVEDO DO Ot Z01.818 ENCOUNTER FOR OTHER PREPROCEDURAL EXAMIN 11/05/2017 CARLO MCCORMICK, MARIZA Rader Ot Z12.31 ENCNTR SCREEN MAMMOGRAM FOR MALIGNANT NE 11/05/2017 Ot R92.2 INCONCLUSIVE MAMMOGRAM 11/06/2017 DIAN ACEVEDO DO Ot I10 ESSENTIAL (PRIMARY) HYPERTENSION 11/06/2017 DIAN ACEVEDO DO Ot K21.9 GASTRO-ESOPHAGEAL REFLUX DISEASE WITHOUT 11/06/2017 DIAN ACEVEDO DO Ot K81.1 CHRONIC CHOLECYSTITIS 11/06/2017 DIAN ACEVEDO DO Ot K82.8 OTHER SPECIFIED DISEASES OF GALLBLADDER 11/06/2017 DIAN ACEVEDO DO Ot R73.03 PREDIABETES 11/06/2017 DIAN ACEVEDO DO Ot Z79.84 ALF (CURRENT) USE OF ORAL HYPOGLYC 04/10/2018 MARIZA MATOS MD, Ot V76.12 OTH SCREEN MAMMO-MALIGN NEOPLASM OF LAVELLE 04/10/2018 MARIZA MATOS MD, Ot Z12.31 ENCNTR SCREEN MAMMOGRAM FOR MALIGNANT NE 04/10/2018 FLACA OCAMPO Ot 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 RELATED DIFFUSE (ENDEM 04/10/2018 JENNIFER MCCORMICK, KENDALL Crawford Ot E04.1 NONTOXIC SINGLE THYROID NODULE 04/10/2018 MARIZA MATOS MD, Ot Z12.31 ENCNTR SCREEN MAMMOGRAM FOR MALIGNANT NE 04/10/2018 FLACA OCAMPO Ot K76.0 FATTY (CHANGE OF) LIVER, NOT ELSEWHERE C 04/10/2018 FLACA OCAMPO Ot R10.11 RIGHT UPPER QUADRANT PAIN 04/10/2018 JERO IBARRA Ot E11.9 TYPE 2 DIABETES MELLITUS WITHOUT COMPLIC 04/10/2018 JERO IBARRA Ot I10 ESSENTIAL (PRIMARY) HYPERTENSION 04/10/2018 JERO IBARRA Ot R00.0 TACHYCARDIA, UNSPECIFIED 04/10/2018 JERO IBARRA Ot R00.2 PALPITATIONS 04/10/2018 DIAN ACEVEDO DO Ot R10.11 RIGHT UPPER QUADRANT PAIN 04/10/2018 DIAN ACEVEDO DO Ot R19.7 DIARRHEA, UNSPECIFIED 04/10/2018 DIAN ACEVEDO DO Ot Z01.818 ENCOUNTER FOR OTHER PREPROCEDURAL EXAMIN 04/10/2018 MARIZA MATOS MD, Ot Z12.31 ENCNTR SCREEN MAMMOGRAM FOR MALIGNANT NE 04/10/2018 Ot R92.2 INCONCLUSIVE MAMMOGRAM Procedures Code Description [place] [address] THERAPUTIC INJ SQ/IM 11/20/2012 J1030 DEPO MEDROL 40 MG INJ 11/20/2012 Results Test Result Range Urine beta human chorionic gonadotropin (hCG) measurement - 10/31/17 06:25 Urine beta human chorionic gonadotropin (hCG) measurement NEGATIVE NEGATIVE Methicillin resistant Staphylococcus aureus (MRSA) screening culture - 06:40 Methicillin resistant Staphylococcus aureus (MRSA) screening culture NEG NRG Complete blood count (CBC) with automated white blood cell (WBC) differential - 10/31/17 07:00 Blood leukocytes automated count (number/volume) 10.2 10*3/uL 4.3-11.0 Blood erythrocytes automated count (number/volume) 4.18 10*6/uL 4.35-5.85 Venous blood hemoglobin measurement (mass/volume) 11.8 g/dL 11.5-16.0 Blood hematocrit (volume fraction) 35 % 35-52 Automated erythrocyte mean corpuscular volume 84 [foz_us] 80-99 Automated erythrocyte mean corpuscular hemoglobin (mass per erythrocyte) 28 pg 25-34 Automated erythrocyte mean corpuscular hemoglobin concentration measurement ( mass/volume) 34 g/dL 32-36 Automated erythrocyte distribution width ratio 13.5 % 10.0-14.5 Automated blood platelet count (count/volume) 385 10*3/uL 130-400 Automated blood platelet mean volume measurement 10.9 [foz_us] 7.4-10.4 Automated blood neutrophils/100 leukocytes 65 % 42-75 Automated blood lymphocytes/100 leukocytes 26 % 12-44 Blood monocytes/100 leukocytes 6 % 0-12 Automated blood eosinophils/100 leukocytes 3 % 0-10 Automated blood basophils/100 leukocytes 0 % 0-10 Blood neutrophils automated count (number/volume) 6.6 10*3 1.8-7.8 Blood lymphocytes automated count (number/volume) 2.7 10*3 1.0-4.0 Blood monocytes automated count (number/volume) 0.6 10*3 0.0-1.0 Automated eosinophil count 0.3 10*3/uL 0.0-0.3 Automated blood basophil count (count/volume) 0.0 10*3/uL 0.0-0.1 Encounters ACCT No. Visit Date/Time Discharge Status Pt. Type Provider Facility Loc./Unit Complaint [id number] 12/15/2013 15:41:00 12/15/2013 23:59:59 CLS Outpatient RAIZA HUNTER APRN [id number] 11/20/2012 11:19:00 11/20/2012 23:59:59 CLS Outpatient RAIZA HUNTER APRN [id number] 01/15/2012 08:17:00 01/15/2012 23:59:59 CLS Outpatient [id number] 03/31/2018 10:40:00 03/31/2018 23:59:59 CLS Outpatient Yumiko Jin [facility] 10/23/17 02/09/2018 06:14:56 02/09/2018 23:59:59 CLS Outpatient Sj Jinqueline ApurvaRandall [id number] 04/10/2018 07:52:00 04/10/2018 13:40:00 DIS Outpatient DIAN ACEVEDO DO [facility] PREOP COLONOSCOPY/EGD [id number] 10/31/2017 06:17:00 10/31/2017 12:09:00 DIS Outpatient DIAN ACEVEDO DO [facility] SDC RUQ PAIN [id number] 10/25/2017 05:30:00 10/25/2017 14:14:00 DIS Outpatient DIAN ACEVEDO DO D [facility] PREOP RUQ PAIN [id number] 09/24/2017 09:17:00 09/24/2017 23:59:59 CLS Outpatient MARIZA MATOS MD [facility] RAD ROUTINE [id number] 08/08/2017 09:30:00 08/08/2017 23:59:59 CLS Preadmit DIAN ACEVEDO DO [facility] SDC RUQ PAIN, DIARRHEA [id number] 08/06/2017 13:40:00 08/06/2017 23:59:59 CLS Outpatient JERO IBARRA [facility] CARD DM [id number] 08/06/2017 05:36:00 08/06/2017 23:59:59 CLS Outpatient DIAN ACEVEDO DO [facility] PREOP RUQ PAIN, DIARRHEA [id number] 04/18/2017 09:13:00 04/18/2017 23:59:59 CLS Outpatient FLACA OCAMPO CARPENTER APPRENTICE [facility] CARD RUQ PAIN [id number] 04/15/2017 08:08:00 04/15/2017 23:59:59 CLS Outpatient FLACA OCAMPO CARPENTER APPRENTICE [facility] RAD ABD PAIN [id number] 09/12/2016 11:55:00 09/12/2016 23:59:59 CLS Outpatient MARIZA MATOS MD [facility] RAD ROUTINE SCREENING [id number] 08/14/2016 11:15:00 08/14/2016 23:59:59 CLS Preadmit JERO IBARRA [facility] CARD DME 11.9,GERD K21.9 [id number] 08/14/2016 10:00:00 08/14/2016 23:59:59 CLS Preadmit JERO IBARRA [facility] CARD DM E11.9 [id number] 08/06/2016 07:00:00 08/06/2016 23:59:59 CLS Preadmit FLACA OCAMPO [facility] RAD ABD PAIN [id number] 06/29/2016 14:12:00 06/29/2016 23:59:59 CLS Preadmit KENDALL RODRIGUEZ MD [facility] RAD THYROID NODULE [id number] 06/27/2016 13:51:00 06/27/2016 23:59:59 CLS Outpatient KENDALL RODRIGUEZ MD [facility] RAD THYROID NODULES,FAM HX OF THYROID [place] [id number] 06/18/2016 17:53:00 06/18/2016 23:59:59 CLS Outpatient FLACA OCAMPO [facility] RAD THYROMEGALY [id number] 08/18/2015 13:31:00 08/18/2015 23:59:59 CLS Outpatient AMRIZA MATOS MD [facility] RAD SCREENING [id number] 12/28/2013 07:27:00 12/28/2013 23:59:59 CLS Outpatient MARIZA MATOS MD [facility] RAD SCREENING [id number] 08/13/2012 07:59:00 08/13/2012 12:55:00 DIS Outpatient JAKE BLEDSOE MD [facility] SDC DUS [id number] 08/08/2012 10:15:00 08/08/2012 23:59:59 CLS Outpatient LADI MCCORMICK, JAKE Mcclure [facility] PREOP STRESS INCONTINENCE; DISTAL URETHRAL STENOSIS [id number] 04/11/2018 14:00:00 PEN Preadmit DIAN ACEVEDO DO [facility] ENDO DIARRHEA/GERD [id number] 10/02/2017 08:05:00 Document Registration [id number] 11/17/2014 17:19:00 Document Registration [id number] 11/17/2014 17:19:00 Document Registration
--- OUTSIDE RECORDS SUMMARY | 2018-04-11 10:38 | XMS REPORT ---
Author Author RAIZA Red Organization [facility] Address [address] [place] [address] Care Team Providers Care Solutions Architect Name Role Phone RAIZA Red Unavailable PROBLEMS Type Condition ICD9-CM Code EEI12-UZ Code Onset Dates Condition Status SNOMED Code Problem Environmental allergies Z91.09 Active [id number] ALLERGIES No Known Allergies ENCOUNTERS Encounter Location Date Diagnosis [facility] [id number] [place] [address] [id number] Apr, Subacute maxillary sinusitis J01.00 [facility] [id number] [place] [address] [id number] Mar, Subacute maxillary sinusitis J01.00 and Otalgia of both ears H92.03 [facility] [id number] [place] [address] [id number] Dec, Acute pansinusitis, recurrence not specified J01.40 and Dysfunction of both eustachian tubes H69.83 [facility] [id number] [place] [address] [id number] Apr, Sinus congestion R09.81 and Environmental allergies Z91.09 [facility] [id number] [place] [address] [phone] May, [facility] [id number] [place] [phone] May, [facility] [id number] [place] [address] [phone] Nov, [facility] [id number] [place] [address] [phone] Nov, [facility] [id number] [place] [address] Oct, [facility] [address] [facility] [id number] [place] [address] Dec, [facility] [address] [facility] [id number] [place] [address] Dec, IMMUNIZATIONS No Known Immunizations SOCIAL HISTORY Never Assessed REASON FOR VISIT sinus issues-Hui [facility] PLAN OF CARE Activity Details Follow Up prn Reason: VITAL SIGNS Height 64 in 2017-05-02 Weight 175 lbs 2017-05-02 Temperature 98 degrees Fahrenheit 2017-05-02 Heart Rate 130 bpm 2017-05-02 Respiratory Rate 20 2017-05-02 BMI 30.04 kg/m2 2017-05-02 Blood pressure systolic 130 mmHg 2017-05-02 Blood pressure diastolic 72 mmHg 2017-05-02 MEDICATIONS Medication Instructions Dosage Frequency Start Date End Date Duration Status Effexor XR by Oral route Dec, Active Promethazine-Codeine 6.25-10 mg/5 mL 10 mL by Oral route every 6 hours for 7 day(s)PRNcough Dec, Not-Taking Zyrtec Allergy Active Hyzaar by Oral route Dec, Not-Taking Levonorgestrel-Ethinyl Estrad by Oral route Dec, Active Metformin HCl Active Biaxin XL 500 mg Orally Once a day 2 tablets with food 24h Apr, Apr, 7 day(s) Active Augmentin 875-125 mg 1 tablet by Oral route 2 times per day for 10 day(s) Oct, Not-Taking Pseudoephedrine HCl 60 mg Orally every 6 hrs prn congestion 1 tablet as needed Apr, Active PredniSONE 20 mg Orally Once a day with food 3 tablets x 4 days, 2 tablets x 3 days, then 1 tab x 2 days Apr, 9 days Active Diflucan 150 mg take 1 tablet by Oral route once 1 time per day Take on day 5 and day 10 Oct, Not-Taking RESULTS No Results PROCEDURES No Known procedures INSTRUCTIONS MEDICATIONS ADMINISTERED No Known Medications MEDICAL (GENERAL) HISTORY Type Description Date Medical History hypertension Surgical History left ACL 2015
--- OUTSIDE RECORDS SUMMARY | 2018-04-11 10:38 | XMS REPORT ---
Author Author RAIZA HUNTER [facility] Address [address] [place] [address] Care Team Providers [facility] Worker Name Role Phone GABRIEL HUNTERYL Unavailable PROBLEMS Type Condition ICD9-CM Code [id number] Code Onset Dates Condition Status SNOMED Code Problem Environmental allergies Z91.09 Active [id number] ALLERGIES No Known Allergies ENCOUNTERS Encounter Location Date Diagnosis [facility] [id number] [place] [address] [id number] Apr, Subacute maxillary sinusitis J01.00 [facility] [id number] [place] [address] [id number] Mar, Subacute maxillary sinusitis J01.00 and Otalgia of both ears H92.03 [facility] [id number] [place] [address] [id number] Dec, Acute pansinusitis, recurrence not specified J01.40 and Dysfunction of both eustachian tubes H69.83 [facility] [id number] [place] [address] [id number] Apr, Sinus congestion R09.81 and Environmental allergies Z91.09 [facility] [id number] [place] [address] [phone] May, [facility] [id number] [place] [phone] May, [facility] [address] [phone] Nov, [facility] [id number] [place] [address] [phone] Nov, [facility] [address] [place] [address] Oct, [facility] [address] [facility] [id number] [place] [address] Dec, [facility] [address] [facility] [id number] [place] [address] Dec, IMMUNIZATIONS Vaccine Route Administration Date Status DEPO MEDROL 80 MG/ML IM Intramuscular Jan 24, 2017 Administered SOCIAL HISTORY Never Assessed REASON FOR VISIT sinus issues-[facility] 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 PLAN OF CARE Activity Details Follow Up prn Reason: VITAL SIGNS Height 64 in 2017-01-24 Weight 167 lbs 2017-01-24 Temperature 98.8 degrees Fahrenheit 2017-01-24 Heart Rate 116 bpm 2017-01-24 Respiratory Rate 18 2017-01-24 BMI 28.66 kg/m2 2017-01-24 Blood pressure systolic 120 mmHg 2017-01-24 Blood pressure diastolic 78 mmHg 2017-01-24 MEDICATIONS Medication Instructions Dosage Frequency Start Date End Date Duration Status Diflucan 150 mg take 1 tablet by Oral route once 1 time per day Take on day 5 and day 10 Oct, Not-Taking Levonorgestrel-Ethinyl Estrad by Oral route Dec, Active Effexor XR by Oral route Dec, Active Augmentin 875-125 mg 1 tablet by Oral route 2 times per day for 10 day(s) Oct, Not-Taking Metformin HCl Active Zyrtec Allergy Active Promethazine-Codeine 6.25-10 mg/5 mL 10 mL by Oral route every 6 hours for 7 day(s)PRNcough Dec, Not-Taking Hyzaar by Oral route Dec, Not-Taking RESULTS No Results PROCEDURES Procedure Date Ordered Result Body Site DEPO MEDROL 80 MG/ML Jan 24, 2017 THER/PROPH/DIAG INJ, SC/IM Jan 24, 2017 INSTRUCTIONS MEDICATIONS ADMINISTERED No Known Medications MEDICAL (GENERAL) HISTORY Type Description Date Medical History hypertension Surgical History left ACL 2015
[2018-04-11 11:53] VITALS: BP 123/80
[2018-04-11] MEDS ORDERED: PROPOFOL INJECTION 50 ML IV ONE ×2 (11:55→12:27)
[2018-04-11] MEDS ORDERED: MIDAZOLAM 2 MG/2 ML (VERSED) VIAL ONE ×2 (11:56→13:06)
[2018-04-11] MEDS ORDERED: LACTATED RINGERS 1,000 ML IV PRN (13:00)
--- NOTE | 2018-04-11 13:18 | Anesthesia-General Post-Op ---
MAC Patient Condition Mental Status/LOC: Same as Preop Cardiovascular: Satisfactory Nausea/Vomiting: Absent Respiratory: Satisfactory Pain: Controlled Complications: Absent Post Op Complications Complications None Follow Up Care/Instructions Patient Instructions None needed. Anesthesiology Discharge Order Discharge Order Patient is doing well, no complaints, stable vital signs, no apparent adverse anesthesia problems. No complications reported per nursing. STUART LAZCANO CRNA Apr 11, 2018 13:18
--- NOTE | 2018-04-11 13:21 | Progress Note-Post Operative ---
Post-Operative Progess Note Surgeon (s)/Paper Steamer (s) Surgeon DIAN ACEVEDO DO Paper Steamer: na Pre-Operative Diagnosis gerd, diarrhea Post-Operative Diagnosis gastritis, small hiatal hernia, diverticulosis, Procedure & Operative Findings Date of Procedure 04/11/18 Procedure Performed/Findings egd c biopsies, colonoscopy with random cold biopsies. Anesthesia Type per civil drafting technician Estimated Blood Loss Estimated blood loss (mL): scant Specimens/Packing Specimens Removed antrum, ge, random colon DIAN ACEVEDO DO Apr 11, 2018 13:21
[2018-04-11] MEDS ORDERED: PANT40TA2 PO (13:22)
--- NOTE | 2018-04-11 13:23 | Discharge Inst-Simple/Standard ---
Discharge Inst-Standard Discharge Medications New, Converted or Re-Newed RX: Transmitted to Pharmacy Patient Instructions/Follow Up Plan of Care/Instructions/FU: 2 weeks ana Activity as Tolerated: Yes Discharge Diet: Regular Diet DIAN ACEVEDO DO Apr 11, 2018 13:23
[2018-04-11 13:45] VITALS: BP 119/74
[2018-04-11 14:14] VITALS: BP 113/75
[2018-04-11 14:16] VITALS: BP 113/75
--- NOTE | 2018-04-12 04:20 | OPERATIVE REPORT ---
DATE OF SERVICE: 04/11/2018 PREOPERATIVE DIAGNOSIS: Chronic diarrhea. POSTOPERATIVE DIAGNOSES: Gastritis, small hiatal hernia, diverticulosis. PROCEDURE: EGD with biopsies, colonoscopy with random cold biopsies. SURGEON: Dian Lyle DO ANESTHESIA: Per SUPERVISOR CORRESPONDENCE SECTION. ESTIMATED BLOOD LOSS: Scant. COMPLICATIONS: None. SPECIMENS: Biopsy of the antrum, GE junction, random colon. INDICATIONS: The patient is a 47-year-old female who has had worsening gastroesophageal reflux disease. Having diarrhea, sometimes having 10 liquid stools per day. She understands risks and benefits of procedure and wished to proceed with procedure. Consent was signed on the chart. DESCRIPTION OF PROCEDURE: The patient was taken to the endoscopy suite, placed in left lower recumbent position. Timeout was performed. Scope was inserted in mouth, down the esophagus, stomach and into the duodenum without difficulty. There were no polyps, masses or ulcerations in the duodenum. Scope was slowly retracted back into the stomach, which was further insufflated. Some slight gastritis appearance with erythema. Biopsy of the antrum was obtained. Scope was retroflexed noting a small hiatal hernia. No polyps, masses or ulcerations. Scope was returned to its normal position, slowly withdrawn to the distal esophagus. There are no polyps, masses or ulcerations in the distal esophagus, maybe slight erythema. Biopsy of the GE junction was obtained. Scope was then slowly retracted back to completely remove, noting no other pathology. Digital rectal exam was performed. There were no palpable polyps, mass or ulcerations. The scope was inserted in the rectum and advanced all the way to the cecum with minimal difficulty. Prep was adequate with irrigation and suction. Scope was then slowly withdrawn. There was diverticulosis beginning in the ascending colon. There were no polyps, masses or ulcerations within the cecum, ascending, transverse, descending colon and sigmoid colon. There is some minimal to moderate amount of diverticulitis throughout the entire colon. Once in the rectum, scope was retroflexed noting no other pathology. Scope was returned to its normal position, slowly withdrawn until completely removed. As the scope was being withdrawn as well, random cold biopsies were obtained. RECOMMENDATIONS: The patient will be started on Protonix 40 mg daily. We will see how she is doing and await biopsy results. We will see her in 2 weeks. If she has any problems prior to that, she should be reevaluated at that time. The patient also recommended high fiber diet. The patient will need repeat colonoscopy in 10 years unless family history of colon cancer or personal history of polyps, which would then be 5 years. If she has any problems prior to that, she should be reevaluated at that time. Job ID: [id number] DocumentID: [id number] Dictated Date: 04/11/2018 19:47:00 Saw Straightener Date: 04/12/2018 04:19:19 Dictated By: DIAN LYLE DO
== END 2018-04-11 14:15 | disposition home or self-care (01) ==
LOC: ENDO 09:40
PROVIDERS: ATTEND Surgery
DX: K52.9 Noninfective gastroenteritis and colitis, unspecified (principal); K57.30 Diverticulosis of large intestine without perforation or abscess without bleeding; K29.70 Gastritis, unspecified, without bleeding; K21.9 Gastro-esophageal reflux disease without esophagitis; K44.9 Diaphragmatic hernia without obstruction or gangrene; I10 Essential (primary) hypertension; E11.9 Type 2 diabetes mellitus without complications; Z87.891 Personal history of nicotine dependence; Z79.84 Long term (current) use of oral hypoglycemic drugs; Z79.899 Other long term (current) drug therapy
CPT/HCPCS: 84703

== ENCOUNTER → 2018-09-25 | Outpatient (CLI) | payer BC ==
[~2018-09-25] MED LIST changes: +PANT40TA2 PO
--- NOTE | 2018-09-26 12:37 | Diagnostic Imaging Report ---
INDICATION: Routine screening. COMPARISON: Comparison is made with prior mammogram from 09/24/2017 and 09/12/2016. 2-D and 3-D bilateral screening mammography was performed. The current study was also evaluated with a Computer Aided Detection (CAD) system. 3-D tomosynthesis was also performed and reviewed. FINDINGS: Scattered fibroglandular densities are identified bilaterally. The parenchymal pattern is stable. No dominant mass or malignant-appearing microcalcifications are seen. There are benign calcifications. Axillae are unremarkable. IMPRESSION: No mammographic features suspicious for malignancy are identified. ACR BI-RADS Category 2: Benign findings. Result letter will be mailed to the patient. Note: At least 10% of breast cancer is not imaged by mammography. Dictated by: Dictated on workstation # [id number]
== END ==
LOC: RAD 14:50
PROVIDERS: ATTEND Obstetrics & Gynecology
DX: Z12.31 Encounter for screening mammogram for malignant neoplasm of breast (principal)
CPT/HCPCS: 77067

== ENCOUNTER → 2019-01-05 | Outpatient (CLI) | payer BC ==
--- NOTE | 2019-01-05 12:19 | Diagnostic Imaging Report ---
INDICATION: HTN DM DYSPNEA MIXED HYPERLIPIDEMIA. COMPARISON: None. FINDINGS: Frontal and lateral views of the chest demonstrate normal heart size and pulmonary vascularity. The lungs are clear. There are no signs of infiltrate, pleural effusions or pneumothoraces. The visualized osseous structures show no acute abnormalities. IMPRESSION: 1. No acute process. No signs of infiltrates, effusions or pneumothoraces. Dictated by: Dictated on workstation # [id number]
== END ==
LOC: CARD 09:20
PROVIDERS: ATTEND Internal Medicine Cardiovascular Disease
DX: I10 Essential (primary) hypertension (principal); E11.9 Type 2 diabetes mellitus without complications; E78.2 Mixed hyperlipidemia; R06.09 Other forms of dyspnea
CPT/HCPCS: 71046; 93351

== ENCOUNTER → 2019-10-05 | Outpatient (CLI) | payer BC ==
[~2019-10-05] MED LIST changes: -METO-387 PO; -MINO100C2 PO; +MINO100C5 PO; +MTP25TSR PO
--- NOTE | 2019-10-06 12:25 | Diagnostic Imaging Report ---
INDICATION: Routine screening. Comparison is made with prior mammogram 09/25/2018 and 09/24/2017. 2-D and 3-D bilateral screening mammography was performed with CAD. Both breasts remain heterogeneously dense, limiting the sensitivity of mammography. No mass or malignant appearing microcalcifications are seen. There are benign calcifications bilaterally. Axillae are unremarkable. IMPRESSION: BI-RADS Category 2 No mammographic features suspicious for malignancy are identified. ACR BI-RADS Category 2: Benign findings. Result letter will be mailed to the patient. Note: At least 10% of breast cancer is not imaged by mammography. Dictated by: Dictated on workstation # [id number]
== END ==
LOC: RAD 15:26
PROVIDERS: ATTEND Obstetrics & Gynecology
DX: Z12.31 Encounter for screening mammogram for malignant neoplasm of breast (principal)
CPT/HCPCS: 77063; 77067

== ENCOUNTER → 2019-11-26 | Outpatient (CLI) | payer BC ==
--- NOTE | 2019-11-26 16:04 | Diagnostic Imaging Report ---
PROCEDURE: MRI lumbar spine without contrast. TECHNIQUE: Multiplanar, multisequence MRI of the lumbar spine was performed without contrast. INDICATION: Low back pain. COMPARISON: None. FINDINGS: 5 lumbar type vertebral bodies are visualized with the last well-formed disc space designated L5-S1. No acute fracture or dislocation is seen in the lumbar spine. Alignment is anatomic. Vertebral body heights are well-maintained. Endplate degenerative changes are present at the L5-S1 level. The conus terminates at the L1 level. No masses are seen associated with the conus or nerve roots of the cauda equina. No epidural collections are identified. Multilevel degenerative changes are seen in the lumbar spine with disc bulges, facet hypertrophy, and buckling of the ligamentum flavum. T12-L1: No significant spinal canal or foraminal stenosis. L1-L2: No significant spinal canal or foraminal stenosis. L2-L3: No significant spinal canal or foraminal stenosis. L3-L4: No significant spinal canal or foraminal stenosis. L4-L5: Broad-based disc bulge, facet hypertrophy, and buckling of the ligamentum flavum results in no significant spinal canal stenosis and no significant foraminal stenosis. L5-S1: Broad-based disc bulge with right paracentral protrusion, facet hypertrophy, and buckling of the ligamentum flavum results in moderate right lateral recess stenosis with mild spinal canal narrowing and moderate bilateral foraminal stenosis. Paravertebral soft tissues are unremarkable. IMPRESSION: 1. No acute fracture or dislocation in the lumbar spine. 2. Multilevel degenerative changes in the lumbar spine, greatest at L4-L5 and L5-S1. A right paracentral protrusion at the L5-S1 level is present causing moderate right lateral recess stenosis and contacting the right S1 nerve root. Dictated by: Dictated on workstation # [id number]
== END ==
LOC: RAD 15:06
PROVIDERS: ATTEND Physician Assistant
DX: M47.817 Spondylosis without myelopathy or radiculopathy, lumbosacral region (principal); M51.27 Other intervertebral disc displacement, lumbosacral region; M48.07 Spinal stenosis, lumbosacral region
CPT/HCPCS: 72148

== ENCOUNTER → 2020-10-05 | Outpatient (CLI) | payer BC ==
--- NOTE | 2020-10-06 09:12 | Diagnostic Imaging Report ---
INDICATION: Routine screening. COMPARISON is made with prior mammograms 10/05/2019 and 09/25/2018. 2-D and 3-D bilateral screening mammography was performed with CAD. Both breasts are heterogeneously dense, limiting the sensitivity of mammography. No mass or malignant-appearing microcalcifications are seen. There are benign calcifications present. Axillae are unremarkable. IMPRESSION: BI-RADS Category 2 No mammographic features suspicious for malignancy are identified. ACR BI-RADS Category 2: Benign findings. Result letter will be mailed to the patient. Note: At least 10% of breast cancer is not imaged by mammography. Dictated by: Dictated on workstation # [id number]
== END ==
LOC: RAD 15:45
PROVIDERS: ATTEND Obstetrics & Gynecology
DX: Z12.31 Encounter for screening mammogram for malignant neoplasm of breast (principal)
CPT/HCPCS: 77063; 77067

== ENCOUNTER → 2021-10-18 | Outpatient (CLI) | payer BC ==
--- NOTE | 2021-10-19 10:26 | Diagnostic Imaging Report ---
Indication: Routine screening. Comparison is made with prior mammograms 10/05/2020 and 10/05/2019. 2-D and 3-D bilateral screening mammography was performed with CAD. Scattered fibroglandular densities are identified bilaterally. The parenchymal pattern is stable. There are benign calcifications. There is no mass or malignant-appearing microcalcifications seen. Axillae are unremarkable. IMPRESSION: BI-RADS Category 2 No mammographic features suspicious for malignancy are identified. ACR BI-RADS Category 2: Benign findings. Result letter will be mailed to the patient. Note: At least 10% of breast cancer is not imaged by mammography. Dictated by: Dictated on workstation # [id number]
== END ==
LOC: RAD 15:45
PROVIDERS: ATTEND Obstetrics & Gynecology
DX: Z12.31 Encounter for screening mammogram for malignant neoplasm of breast (principal)
CPT/HCPCS: 77063; 77067